=== PATIENT | female | born 1950 | race Two or more races ===

== ENCOUNTER 2019-04-11 05:31 | Day surgery (SDC) | payer OTHER ==
[~2019-04-11 05:31] MED LIST: ANORO ELLIPTA1 EACH IH; CALTRATE 600 +1 EACH PO; COZAAR100 MG PO; CRESTOR40 MG PO; FOLGARD TABLET1 EACH PO; METFORMIN HCL500 MG PO; MULTIVI; PNEU16DI2; SYNTH PO; SYNTHROID100 MCG PO; VIT C PO; ZERTEC PO
[2019-04-11] MEDS ORDERED: MACROBID 100 M100 MG PO (09:48)
[2019-04-11] MEDS ORDERED: ULTRACET PO (09:48)
== END 2019-04-11 13:45 | disposition home or self-care (01) ==
LOC: CIR.AMB 05:31
DX: N81.11 Cystocele, midline (principal)

== ENCOUNTER 2022-09-08 05:39 | Day surgery (SDC) | payer OTHER ==
[~2022-09-08 05:39] MED LIST changes: +MACROBID 100 M100 MG PO; +ULTRACET PO
[2022-09-08] MEDS ORDERED: MACROBID 100 M100 MG PO (10:05)
[2022-09-08] MEDS ORDERED: TRAM1TAB98 PO (10:05)
== END 2022-09-08 13:00 | disposition home or self-care (01) ==
LOC: CIR.AMB 05:39
PROVIDERS: ATTEND Obstetrics & Gynecology Gynecology
DX: N81.11 Cystocele, midline (principal); N81.5 Vaginal enterocele; Z91.018 Allergy to other foods; Z88.8 Allergy status to other drugs, medicaments and biological substances; I10 Essential (primary) hypertension; E11.9 Type 2 diabetes mellitus without complications; E03.9 Hypothyroidism, unspecified; Z79.84 Long term (current) use of oral hypoglycemic drugs; Z20.822 Contact with and (suspected) exposure to COVID-19